=== PATIENT | female | born 1985 | race Caucasian/White ===

== ENCOUNTER 2020-02-11 13:51 | Emergency (ER) | payer BC ==
[2020-02-11 14:19] LABS: PTT,PARTIAL THROMBOPLSTIN TIME 23.2 SEC (24.5-32.8)
[2020-02-11 14:20] LABS: CHLORIDE,CL 104 mmol/L (98-107); SODIUM,NA 140 mmol/L (136-145)
--- NOTE | 2020-02-11 16:21 | EDM.PDOC ---
ED HPI GENERAL MEDICAL PROBLEM - General Chief Complaint: Neuro Symptoms/Deficits Stated Complaint: Seizure activity Time Seen by Provider: 02/11/20 14:09 Source of Information: Reports: Patient, EMS, Family - History of Present Illness INITIAL COMMENTS - FREE TEXT/NARRATIVE: Pt presents to ER via EMS after having several tonic/clonic seizures at home No further seizure in ER or during transport No medications given Pt had brain surgery with resection of tumor about 10 days ago Has appointment at [place] in AM for oncology and chemotherapy Onset: Today, Sudden Duration: Minutes:, Resolved Prior to Arrival Location: Reports: Generalized Context: Reports: Other (Post op) Headache Pain Score (Numeric/FACES): 3 - Related Data Allergies Allergy/AdvReac Type Severity Reaction Status Date / Time No Known Allergies Allergy Verified 02/11/20 14:08 Home Meds: Home Meds Multivitamins [Tab-A-[place]] 1 tab PO DAILY 02/11/20 [History] Sertraline HCl 200 mg PO DAILY 02/11/20 [History] methocarbamoL [Methocarbamol] 500 mg PO BID 02/11/20 [History] Past Medical History HEENT History: Reports: Impaired Vision Other HEENT History: wears contacts or glasses Other Neuro History: Chronic headaches Psychiatric History: Reports: Depression Oncologic (Cancer) History: Reports: Brain - Past Surgical History Female Surgical History: Reports: Tubal Ligation Other Neurological Surgeries/Procedures: malignant brain tumor removed 2019. 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 Social & Family History - Tobacco Use Smoking Status *Q: Former Smoker Used Tobacco, but Quit: No Month/Year Tobacco Last Used: quit years ago - Caffeine Use Caffeine Use: Reports: Coffee Caffeine Use Comment: occassional Diet sode, otherwise 1 coffee a day - Recreational Drug Use Recreational Drug Use: No ED ROS GENERAL - Review of Systems Review Of Systems: See Below HEENT: Reports: Other (S/P craniotomy) Respiratory: Reports: No Symptoms Cardiovascular: Reports: No Symptoms GI/Abdominal: Reports: No Symptoms Musculoskeletal: Reports: No Symptoms Neurological: Reports: Seizure - Physical Exam Exam: See Below Exam Limited By: No Limitations General Appearance: Alert, No Apparent Distress Throat/Mouth: Normal Oropharynx Head Exam: Other (S/P craniotomy) Neck: Supple Respiratory/Chest: Lungs Clear Cardiovascular: Regular Rate, Rhythm GI/Abdominal: Soft, Non-Tender Neuro Exam (Abbreviated): Alert, Oriented, Normal Cognition, No Motor/Sensory Deficits Extremities: Normal Inspection Skin Exam: Warm, Dry Course - Vital Signs Last Recorded V/S: Last Vital Signs Temp 97.9 F 02/11/20 14:34 Pulse 91 02/11/20 15:16 Resp 16 02/11/20 15:16 BP 116/88 02/11/20 15:16 Pulse Ox 100 02/11/20 15:16 - Orders/Labs/Meds Orders: Active Orders 24 hr Category Date Time Status Head wo Cont [CT] Stat Exams 02/11/20 14:09 Taken Labs: Laboratory Tests 02/11/20 02/11/20 02/11/20 Range/Units 13:55 13:55 13:55 WBC 6.4 (4.0-10.2) K/uL RBC 4.14 (3.77-5.09) M/uL Hgb 12.2 (11.7-15.5) g/dL Hct 36.8 (34.0-46.0) % MCV 88.9 (84.0-98.0) fL MCH 29.5 (28.2-33.3) pg MCHC 33.2 (31.7-36.0) g/dL RDW 13.7 (11.2-14.1) % Plt Count 259 (150-350) K/uL Neut % (Auto) 81.8 H (45.0-80.0) % Lymph % (Auto) 12.0 (10.0-50.0) % [place] % (Auto) 5.1 (2.0-14.0) % Eos % (Auto) 0.8 (0.0-5.0) % Baso % (Auto) 0.3 (0.0-2.0) % Neut # (Auto) 5.24 (1.40-7.00) K/uL Lymph # (Auto) 0.77 (0.50-3.50) K/uL [place] # (Auto) 0.33 (0.00-1.00) K/uL Eos # (Auto) 0.05 (0.00-0.50) K/uL Baso # (Auto) 0.02 (0.00-0.20) K/uL PT 9.3 L (9.5-12.0) SEC INR 0.9 APTT 23.2 L (24.5-32.8) SEC Sodium 140 (136-145) mmol/L Potassium 3.9 (3.5-5.1) mmol/L Chloride 104 (98-107) mmol/L Carbon Dioxide 22.5 (21.0-32.0) mmol/L BUN 9 (7-18) mg/dL Creatinine 0.68 (0.51-1.17) mg/dL Est Cr Clr Drug Dosing 102.92 mL/min Estimated GFR (MDRD) > 60 mL/min Glucose 109 H (74-106) mg/dL Calcium 8.5 (8.5-10.1) mg/dL Total Bilirubin 0.2 (0.2-1.0) mg/dL AST 16 (15-37) U/L ALT 21 (12-78) U/L Alkaline Phosphatase 124 H (46-116) IU/L Total Protein 7.4 (6.4-8.2) g/dL Albumin 3.5 (3.4-5.0) g/dL - Re-Assessments/Exams Free Text/Narrative Re-Assessment/Exam: 02/11/20 16:[address] reports Pt stable in ER No further seizures D/W [facility] Pt is to keep appointment in AM for oncology OK to travel To [place] ER if worse or recurs Departure - Departure Time of Disposition: 16:30 Disposition: Home, Self-Care 01 Clinical Impression: Seizures, Brain tumor - Discharge Information *PRESCRIPTION DRUG MONITORING PROGRAM REVIEWED*: Not Applicable *COPY OF PRESCRIPTION DRUG MONITORING REPORT IN PATIENT JULIETA: Not Applicable Instructions: Non-Epileptic Seizures, Adult, Metastatic Brain Tumor, Adult Referrals: Dagoberto Dan PA [Primary Care Provider] - Sepsis Event Note - Evaluation Sepsis Screening Result: No Definite Risk - Focused Exam Vital Signs: Vital Signs Temp Pulse Resp BP Pulse Ox 02/11/20 15:16 91 16 116/88 100 02/11/20 14:34 97.9 F 97 20 117/57 L 98 Date Exam was Performed: 02/11/20 Time Exam was Performed: 16:16 - My Orders Last 24 Hours: My Active Orders 02/11/20 14:09 Head wo Cont [CT] Stat - Assessment/Plan Last 24 Hours: My Active Orders 02/11/20 14:09 Head wo Cont [CT] Stat
== END 2020-02-11 16:44 | disposition home or self-care (01) ==
LOC: LL.ED 13:51
DX: R56.9 Unspecified convulsions (principal); D49.6 Neoplasm of unspecified behavior of brain; F32.9 Major depressive disorder, single episode, unspecified; Z79.899 Other long term (current) drug therapy; Z87.891 Personal history of nicotine dependence
CPT/HCPCS: 36415; 70450; 80053; 85025; 85610; 85730; 99285-25